=== PATIENT | female | born 1960 | race Caucasian/White ===

== ENCOUNTER 2016-11-18 07:45 | Emergency (ER) | payer BC ==
[~2016-11-18] VITALS: Ht 152.4 cm; Wt 54.9 kg
[~2016-11-18 07:45] MED LIST: SYN75 PO
[2016-11-18 07:49] VITALS: TEMP 36.6; Ht 152.4 cm; Wt 54.9 kg
[2016-11-18 08:32] LABS: BASO % 0.1 %; BASO ABS # 0.01 K/uL (0-0.2); COMPLETE YES; EOS % 3.8 %; HEMATOCRIT 42.4 % (37-47); IG% 0.2 %; LYMPH % 13.3 %; LYMPH ABS # 1.37 K/uL (1.2-3.4); MEAN CELL VOLUME 87.2 fL (80-100); MEAN CORPUSCULAR HEMOGLOBIN 27.6 pg (25-34); MEAN CORPUSCULAR HGB CONC 31.6 g/dl (32-36); MEAN PLATELET VOLUME 10.3 fL (7.4-10.4); MONO % 5.9 %; NEUT % 76.7 %; PLATELET COUNT 261 K/uL (130-400); RED BLOOD COUNT 4.86 M/uL (4.2-5.4); WHITE BLOOD COUNT 10.32 K/uL (4.8-10.8)
[2016-11-18] MEDS ORDERED: CYCL10TA6 PO (08:34)
[2016-11-18] MEDS ORDERED: IBUP-1459 PO (08:34)
[2016-11-18] MEDS ORDERED: LEVO125T5 PO (08:34)
[2016-11-18 08:49] LABS: BLOOD UREA NITROGEN 21 mg/dl (7-18); CARBON DIOXIDE 30 mmol/L (21-32); CHLORIDE 107 mmol/L (98-107); GLUCOSE 93 mg/dl (70-99); POTASSIUM 3.5 mmol/L (3.5-5.1); SODIUM 144 mmol/L (136-145)
[2016-11-18] MEDS ORDERED: KETOROLAC TROMETHAMINE 15 MG/ML VIAL IV STA (08:50)
--- NOTE | 2016-11-18 09:01 | DIAGNOSTIC IMAGING REPORT ---
THORACIC SPINE 3 VIEWS CLINICAL HISTORY: Thoracic back pain. FINDINGS: AP, lateral, and swimmer's views of the thoracic spine are obtained. No prior studies are available for comparison at the time of dictation. The skeletal structures are osteopenic. There is no radiographic evidence of acute fracture or malalignment. Vertebral body height and alignment appear maintained throughout the thoracic spine. The transverse processes and pedicles are grossly intact as seen on the frontal view. The Intervertebral disc spaces appear preserved. The lung parenchyma is clear as imaged. IMPRESSION: There is no radiographic evidence of fracture or malalignment involving the thoracic spine. Electronically signed by: Archie Cai M.D. 11/18/2016 8:59 AM Dictated Date/Time: 11/18/2016 8:58 AM
--- NOTE | 2016-11-18 09:02 | DIAGNOSTIC IMAGING REPORT ---
SINGLE VIEW CHEST CLINICAL HISTORY: Atypical chest pain. FINDINGS: A PA chest radiograph is obtained. No prior studies are available for comparison at the time of dictation. The examination is degraded by apical lordotic positioning. The cardiomediastinal silhouette is unremarkable. There is left basilar atelectasis. The lungs and pleural spaces are otherwise clear. No pneumothorax is seen. The bony thorax is grossly intact. IMPRESSION: No active disease in the chest. Electronically signed by: Archie Cai M.D. 11/18/2016 9:00 AM Dictated Date/Time: 11/18/2016 9:00 AM
--- NOTE | 2016-11-18 09:33 | EMERGENCY ROOM VISIT NOTE ---
History First contact with patient: 07:56 Chief Complaint: BACK PAIN Stated Complaint: BACK PAIN/SPASMS DX: COSTOCHONDRITIS History of Present Illness The patient is a 55 year old female who presents to the Emergency Room with complaints of back and chest pain. The patient states that 1.5 weeks ago, she was carrying a treadmill and the treadmill fell onto her sternum. She states that her pain was improving but worsened when she was camping last weekend. She has pain with coughing "and states that she felt something "pop" when she was camping. She reports having chest and thoracic spasms which make her chest feel numb. She was seen at [facility] emergency department and had negative x- rays. She was prescribed Flexeril which relieves some of her pain. She rates her current discomfort a 4/10. She denies any shortness of breath. Review of Systems A complete 10 point review of systems was reviewed with the patient with pertinent positives and negatives as per history of present illness. All else were negative. Family History No pertinent family history Social History Smoking Status: Never Smoker Marital Status: Housing Status: lives with significant other Occupation Status: employed Current/Historical Medications Scheduled Cyclobenzaprine Hcl (Flexeril), 10 MG PO TID Levothyroxine Sodium (Levothyroxine Sodium), 62.5 MG PO DAILY Scheduled PRN Ibuprofen (Motrin), 400 MG PO Q6H PRN for Pain Allergies Coded Allergies: Sulfa Drugs (Verified Allergy, Unknown, 11/18/16) Sulfamethoxazole (Verified Allergy, Unknown, 11/18/16) Physical Exam Vital Signs Date Time Temp Pulse Resp B/P Pulse Ox O2 Delivery O2 Flow Rate FiO2 11/18/16 10:00 66 12 109/69 96 11/18/16 09:10 85 14 129/77 98 Room Air 11/18/16 07:49 36.6 117 20 124/78 97 Room Air Physical Exam VITALS: Vitals are noted on the nurse's note and reviewed by myself. Vital signs stable. GENERAL: This is a 55-year-old female, in no acute distress, nondiaphoretic, well-developed well-nourished. SKIN: Capillary reflex less than 2 seconds. HEENT: Normocephalic. PERRLA. EOMI. Nares patent. Mucous membranes moist. Neck is supple without nuchal rigidity. HEART: Regular rate and rhythm without murmurs gallops or rubs. LUNGS: Clear to auscultation bilaterally without wheezes, rales or rhonchi. No retractions or accessory muscle use. MUSCULOSKELETAL: There is reproducible tenderness to palpation over the xiphoid process and bilateral thoracic paraspinous muscles. NEURO: Patient was alert and oriented to person place and time. Medical Decision & Procedures ER Provider Diagnostic Interpretation: SINGLE VIEW CHEST FINDINGS: A PA chest radiograph is obtained. No prior studies are available for comparison at the time of dictation. The examination is degraded by apical lordotic positioning. The cardiomediastinal silhouette is unremarkable. There is left basilar atelectasis. The lungs and pleural spaces are otherwise clear. No pneumothorax is seen. The bony thorax is grossly intact. IMPRESSION: No active disease in the chest. THORACIC SPINE 3 VIEWS FINDINGS: AP, lateral, and swimmer's views of the thoracic spine are obtained. No prior studies are available for comparison at the time of dictation. The skeletal structures are osteopenic. There is no radiographic evidence of acute fracture or malalignment. Vertebral body height and alignment appear maintained throughout the thoracic spine. The transverse processes and pedicles are grossly intact as seen on the frontal view. The Intervertebral disc spaces appear preserved. The lung parenchyma is clear as imaged. IMPRESSION: There is no radiographic evidence of fracture or malalignment involving the thoracic spine. Laboratory Results 11/18/16 08:20 Red Blood Count 4.86, Mean Corpuscular Volume 87.2, Mean Corpuscular Hemoglobin 27.6, Mean Corpuscular Hemoglobin Concent 31.6, Mean Platelet Volume 10.3, Neutrophils (%) (Auto) 76.7, Lymphocytes (%) (Auto) 13.3, Monocytes (%) (Auto) 5.9, Eosinophils (%) (Auto) 3.8, Basophils (%) (Auto) 0.1, Neutrophils # (Auto) 7.92, Lymphocytes # (Auto) 1.37, Monocytes # (Auto) 0.61, Eosinophils # (Auto) 0.39, Basophils # (Auto) 0.01 11/18/16 08:20 Test 11/18/16 08:20 White Blood Count 10.32 K/uL (4.8-10.8) Red Blood Count 4.86 M/uL (4.2-5.4) Hemoglobin 13.4 g/dL (12.0-16.0) Hematocrit 42.4 % (37-47) Mean Corpuscular Volume 87.2 fL (80-100) Mean Corpuscular Hemoglobin 27.6 pg (25-34) Mean Corpuscular Hemoglobin Concent 31.6 g/dl (32-36) Platelet Count 261 K/uL (130-400) Mean Platelet Volume 10.3 fL (7.4-10.4) Neutrophils (%) (Auto) 76.7 % Lymphocytes (%) (Auto) 13.3 % Monocytes (%) (Auto) 5.9 % Eosinophils (%) (Auto) 3.8 % Basophils (%) (Auto) 0.1 % Neutrophils # (Auto) 7.92 K/uL (1.4-6.5) Lymphocytes # (Auto) 1.37 K/uL (1.2-3.4) Monocytes # (Auto) 0.61 K/uL (0.11-0.59) Eosinophils # (Auto) 0.39 K/uL (0-0.5) Basophils # (Auto) 0.01 K/uL (0-0.2) RDW Standard Deviation 42.8 fL (36.4-46.3) RDW Coefficient of Variation 13.5 % (11.5-14.5) Immature Granulocyte % (Auto) 0.2 % Immature Granulocyte # (Auto) 0.02 K/uL (0.00-0.02) Anion Gap 7.0 mmol/L (3-11) Est Creatinine Clear Calc Drug Dose 35.3 ml/min Estimated GFR () 48.9 Estimated GFR (Non- 42.2 BUN/Creatinine Ratio 15.0 (10-20) Calcium Level 9.0 mg/dl (8.5-10.1) Troponin I < 0.015 ng/ml (0-0.045) ECG Rate (beats per minute): 94 Rhythm: normal sinus Findings: PAC, no acute ischemic change Medical Decision Differential diagnosis includes cardiac contusion, pulmonary contusion, rib fracture, sternal fracture, costochondritis, among others. The patient is a 55-year-old female who presents today complaining of chest pain after an injury. The patient was concerned about a possible cardiac contusion, so laboratory testing was ordered. Labs showed no elevation of the troponin. EKG showed no acute ischemic changes. The patient's creatinine is slightly elevated above her baseline at 1.4. The patient states that her baseline creatinine is typically 1.1-1.2. She has been taking ibuprofen and this may be contributing to this. The patient had been given Toradol previous to my knowledge of her elevated creatinine. Chest x-ray was unremarkable. Thoracic spine x-rays were performed and were also unremarkable. The patient was informed of the findings and felt much better after Toradol. She will continue axci-olt-xliccty medications and follow-up with her primary care provider. The patient's case was reviewed with Dr. Laura, ED attending physician, who also reviewed labs, images, and EKG and agreed with my assessment and treatment plan. Based on the patient's presentation and work up, I feel the patient is stable for outpatient treatment. The patient was educated to return to the emergency department for any worsening of their current condition or new/concerning symptoms. She will follow up with her primary care provider. Impression Primary Impression: Musculoskeletal chest pain Departure Information Dispostion Home / Self-Care Condition GOOD Referrals John Sommer M.D. (PCP) Forms HOME CARE DOCUMENTATION FORM, IMPORTANT VISIT INFORMATION Patient Instructions My [facility] Additional Instructions Follow up with Dr. Sommer this week. Rib/chest contusions may take up to 6-8 weeks to heal fully. Return to the ED with shortness of breath, worsening chest pain, or any other new/concerning symptoms.
[2016-11-18 10:00] VITALS: BP 109/69; PULSE 66; O2SAT 96
== END 2016-11-18 10:00 | disposition home or self-care (01) ==
LOC: C.EDB 07:47 → C.EDA 10:00
DX: R07.89 Other chest pain (principal); M54.9 Dorsalgia, unspecified; I49.1 Atrial premature depolarization; Z79.899 Other long term (current) drug therapy